=== PATIENT | male | born 2000 | race Caucasian/White ===

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

== ENCOUNTER → 2020-05-17 | Outpatient (CLI) | payer OTHER ==
[2020-05-17 17:19] LABS: BASOPHILS % (AUTO) 0 % (0-10); EOSINOPHILS # (AUTO) 0.6 10^3/uL (0.0-0.3); EOSINOPHILS % (AUTO) 12 % (0-10); HEMATOCRIT 43 % (40-54); HEMOGLOBIN 15.3 G/DL (13.3-17.7); LYMPHOCYTES % (AUTO) 39 % (12-44); MEAN CORPUSCULAR HEMOGLOBIN 31 PG (25-34); MEAN CORPUSCULAR HGB CONC 36 G/DL (32-36); MEAN CORPUSCULAR VOLUME 87 FL (80-99); MEAN PLATELET VOLUME 9.6 FL (7.4-10.4); MONOCYTES # (AUTO) 0.4 X 10^3 (0.0-1.0); MONOCYTES % (AUTO) 9 % (0-12); NEUTROPHILS # (AUTO) 2.1 X 10^3 (1.8-7.8); NEUTROPHILS % (AUTO) 41 % (42-75); PLATELET COUNT 272 10^3/uL (130-400); RED CELL DISTRIBUTION WIDTH 12.5 % (10.0-14.5); WHITE BLOOD COUNT 5.1 10^3/uL (4.3-11.0)
[2020-05-17 17:31] LABS: ALBUMIN 4.3 GM/DL (3.2-4.5)
[2020-05-17 17:32] LABS: CHLORIDE 106 MMOL/L (98-107); POTASSIUM 3.9 MMOL/L (3.6-5.0); SODIUM 139 MMOL/L (135-145)
[2020-05-17 17:33] LABS: CALCIUM 9.1 MG/DL (8.5-10.1)
[2020-05-17 17:34] LABS: GLUCOSE 123 MG/DL (70-105); TOTAL PROTEIN 6.9 GM/DL (6.4-8.2)
[2020-05-17 17:35] LABS: CARBON DIOXIDE 25 MMOL/L (21-32)
[2020-05-17 17:36] LABS: BILIRUBIN,TOTAL 1.7 MG/DL (0.1-1.0)
[2020-05-17 17:37] LABS: ALKALINE PHOSPHATASE 63 U/L (40-136)
[2020-05-17 17:38] LABS: GFR ESTIMATED > 60
[2020-05-17 17:39] LABS: BUN/CREATININE RATIO 11
[2020-05-17 17:41] LABS: ALANINE AMINOTRANSFERASE 12 U/L (0-55)
[2020-05-17 17:48] LABS: CREATINE KINASE MB 0.6 NG/ML (<6.6)
== END ==
LOC: LAB 17:05
PROVIDERS: ATTEND Nurse Practitioner Family
DX: R55 Syncope and collapse (principal); R00.2 Palpitations; E86.0 Dehydration
CPT/HCPCS: 36415; 80053; 82553; 83874; 84443; 84484; 85025

== ENCOUNTER → 2020-05-23 | Outpatient (CLI) | payer OTHER | LOC: CARD 12:18 | PROVIDERS: ATTEND Nurse Practitioner Family | DX: R55 Syncope and collapse (principal); R00.2 Palpitations; E86.0 Dehydration | CPT/HCPCS: 93225; 93226; 93306 ==

== ENCOUNTER 2021-02-27 09:55 | Emergency (ER) | payer OTHER ==
[~2021-02-27] VITALS: Ht 190 cm; Wt 82.0 kg
[2021-02-27] MEDS ORDERED: KETOROLAC 30 MG/ML VIAL ONE (10:30)
[2021-02-27] MEDS ORDERED: NS IV 1000 ML 1,000 ML ONE (10:30)
[2021-02-27 10:41] LABS: BASOPHILS % (AUTO) 0 % (0-10); EOSINOPHILS # (AUTO) 0.2 10^3/uL (0.0-0.3); EOSINOPHILS % (AUTO) 1 % (0-10); HEMATOCRIT 45 % (40-54); HEMOGLOBIN 15.4 g/dL (13.3-17.7); LYMPHOCYTES # (AUTO) 1.1 10^3/uL (1.0-4.0); LYMPHOCYTES % (AUTO) 8 % (12-44); MEAN CORPUSCULAR HEMOGLOBIN 31 pg (25-34); MEAN CORPUSCULAR HGB CONC 35 g/dL (32-36); MEAN CORPUSCULAR VOLUME 89 fL (80-99); MEAN PLATELET VOLUME 9.8 fL (9.0-12.2); MONOCYTES # (AUTO) 0.7 10^3/uL (0.0-1.0); MONOCYTES % (AUTO) 6 % (0-12); NEUTROPHILS # (AUTO) 10.5 10^3/uL (1.8-7.8); NEUTROPHILS % (AUTO) 84 % (42-75); PLATELET COUNT 261 10^3/uL (130-400); WHITE BLOOD COUNT 12.4 10^3/uL (4.3-11.0)
[2021-02-27 10:42] LABS: BILIRUBIN,URINE NEGATIVE (NEGATIVE); CLARITY,URINE CLEAR; COLOR,URINE YELLOW; GLUCOSE, URINE (UA) NEGATIVE (NEGATIVE); KETONES,URINE 1+ (NEGATIVE); LEUKOCYTE ESTERASE ,URINE NEGATIVE (NEGATIVE); NITRITE,URINE NEGATIVE (NEGATIVE); PROTEIN,URINE NEGATIVE (NEGATIVE)
[2021-02-27 10:55] LABS: ALBUMIN 4.5 GM/DL (3.2-4.5)
[2021-02-27 10:56] LABS: CHLORIDE 104 MMOL/L (98-107); POTASSIUM 4.1 MMOL/L (3.6-5.0); SODIUM 138 MMOL/L (135-145)
[2021-02-27 10:57] LABS: CALCIUM 9.3 MG/DL (8.5-10.1)
[2021-02-27 10:58] LABS: GLUCOSE 108 MG/DL (70-105); TOTAL PROTEIN 7.2 GM/DL (6.4-8.2)
[2021-02-27 10:59] LABS: CARBON DIOXIDE 25 MMOL/L (21-32)
[2021-02-27 11:00] LABS: BILIRUBIN,TOTAL 2.6 MG/DL (0.1-1.0)
[2021-02-27 11:01] LABS: ALKALINE PHOSPHATASE 50 U/L (40-136)
[2021-02-27 11:02] LABS: CREATININE SERUM 1.03 MG/DL (0.60-1.30); GFR ESTIMATED > 60
[2021-02-27 11:03] LABS: BUN/CREATININE RATIO 14
[2021-02-27 11:04] LABS: BACTERIA,URINE TRACE /HPF; HYALINE CASTS, URINE RARE /LPF; RBC,URINE 25-50 /HPF; SQUAMOUS EPITHELIAL CELL,UR 0-2 /HPF; WBC,URINE 0-2 /HPF
[2021-02-27 11:05] LABS: ALANINE AMINOTRANSFERASE 11 U/L (0-55)
--- NOTE | 2021-02-27 11:22 | Diagnostic Imaging Report ---
PROCEDURE: CT urinary tract, rule out kidney stone. TECHNIQUE: Multiple contiguous axial images were obtained through the abdomen and pelvis without the use of intravenous contrast. Auto Exposure Controls were utilized during the CT exam to meet ALARA standards for radiation dose reduction. INDICATION: Right-sided flank pain. Hematuria. Evaluate for renal stones. COMPARISON: None. FINDINGS: The heart is unremarkable. The lung bases are clear. A 0.2 cm calculus is seen in the distal right ureter just proximal to the right UVJ with mild right-sided hydroureteronephrosis. No renal calculi or hydronephrosis is seen on the left. No bladder calculi are present. The bladder wall is mildly thickened. The liver, spleen, pancreas, and adrenal glands have a normal appearance. There is no pathologically enlarged mesenteric or retroperitoneal adenopathy. The bowel loops are nondilated. The appendix is visualized in the right lower quadrant and has a normal appearance. There is no free fluid or free air. No acute osseous abnormalities. There is no free air, loculated collection, or adenopathy in the pelvis. IMPRESSION: 1. Calculus in the distal right ureter measuring 0.2 cm just proximal to the right UVJ with mild right-sided hydroureteronephrosis. Dictated by: Dictated on workstation # [id number]
--- NOTE | 2021-02-27 12:47 | ED Back Pain ---
General Stated Complaint: KIDNEY PAIN Source of Information: Patient Exam Limitations: No Limitations History of Present Illness Date Seen by Provider: Feb 27, 2021 Time Seen by Provider: 10:30 Initial Comments Patient presents ER by private conveyance with significant other chief complaint of right flank pain. He has been having some dysuria so he went to urgent care had a urinalysis done was started on ciprofloxacin. He is continued having right flank pain. He rates it as about a 7 out of 10 moderate and has not having any nausea or vomiting. No history of kidney stones. No fevers chills Allergies and Home Medications Allergies Coded Allergies: No Known Drug Allergies (Unverified , 02/27/21) Home Medications Hydrocodone/Acetaminophen 1 Each Tablet, 1 TAB PO Q6H PRN for PAIN-MODERATE (5- 7) Prescribed by: JEANIE BUTLER on 02/27/21 1254 Ondansetron 4 Mg Tab.rapdis, 4 MG PO Q6H PRN for NAUSEA/VOMITING Prescribed by: JEANIE BUTLER on 02/27/21 1253 Tamsulosin HCl 0.4 Mg Cap, 0.4 MG PO DAILY Prescribed by: JEANIE BUTLER on 02/27/21 1253 Patient Home Medication List Home Medication List Reviewed: Yes Review of Systems Constitutional: No chills, No diaphoresis EENTM: No ear discharge, No ear pain Respiratory: No cough, No phlegm Cardiovascular: No chest pain, No palpitations Gastrointestinal: No abdominal pain, No constipation, No diarrhea Genitourinary: No discharge, No dysuria Musculoskeletal: No back pain, No joint pain All Other Systems Reviewed Negative Unless Noted: Yes Past Btjpvsa-Wuufpq-Tvxabk Hx Patient Social History Alcohol Use: Denies Use Smoking Status: Current Everyday Smoker Type Used: Cigarettes (Half pack per) Physical Exam Vital Signs Vital Signs - First Documented 02/27/21 10:24 Temp 36.9 Pulse 85 Resp 20 B/P (MAP) 131/85 (100) Pulse Ox 99 Capillary Refill : Height, Weight, BMI Height: '" Weight: lbs. oz. kg; BMI Method: General Appearance: No Apparent Distress, WD/WN HEENT: PERRL/EOMI, Pharynx Normal, Moist Mucous Membranes Neck: Full Range of Motion, Normal Inspection Cardiovascular: Regular Rate, Rhythm, Normal Peripheral Pulses Respiratory: Lungs Clear, Normal Breath Sounds, No Accessory Muscle Use, No Respiratory Distress Gastrointestinal: Normal Bowel Sounds, Non Tender, Soft Back: Normal Inspection, No Vertebral Tenderness; No CVA Tenderness (L); CVA Tenderness (R) Extremity: Normal Capillary Refill, Normal Inspection Neurologic/Psychiatric: Alert, Oriented x3 Progress/Results/Core Measures Results/Orders Lab Results Laboratory Tests Test 02/27/21 10:30 02/27/21 10:36 Range/Units White Blood Count 12.4 H 4.3-11.0 10^3/uL Red Blood Count 5.01 4.30-5.52 10^6/uL Hemoglobin 15.4 13.3-17.7 g/dL Hematocrit 45 40-54 % Mean Corpuscular Volume 89 80-99 fL Mean Corpuscular Hemoglobin 31 25-34 pg Mean Corpuscular Hemoglobin Concent 35 32-36 g/dL Red Cell Distribution Width 12.0 10.0-14.5 % Platelet Count 261 130-400 10^3/uL Mean Platelet Volume 9.8 9.0-12.2 fL Immature Granulocyte % (Auto) 0 % Neutrophils (%) (Auto) 84 H 42-75 % Lymphocytes (%) (Auto) 8 L 12-44 % Monocytes (%) (Auto) 6 0-12 % Eosinophils (%) (Auto) 1 0-10 % Basophils (%) (Auto) 0 0-10 % Neutrophils # (Auto) 10.5 H 1.8-7.8 10^3/uL Lymphocytes # (Auto) 1.1 1.0-4.0 10^3/uL Monocytes # (Auto) 0.7 0.0-1.0 10^3/uL Eosinophils # (Auto) 0.2 0.0-0.3 10^3/uL Basophils # (Auto) 0.0 0.0-0.1 10^3/uL Immature Granulocyte # (Auto) 0.0 0.0-0.1 10^3/uL Sodium Level 138 135-145 MMOL/L Potassium Level 4.1 3.6-5.0 MMOL/L Chloride Level 104 98-107 MMOL/L Carbon Dioxide Level 25 21-32 MMOL/L Anion Gap 9 5-14 MMOL/L Blood Urea Nitrogen 14 7-18 MG/DL Creatinine 1.03 0.60-1.30 MG/DL Estimat Glomerular Filtration Rate > 60 BUN/Creatinine Ratio 14 Glucose Level 108 H 70-105 MG/DL Calcium Level 9.3 8.5-10.1 MG/DL Corrected Calcium 8.9 8.5-10.1 MG/DL Total Bilirubin 2.6 H 0.1-1.0 MG/DL Aspartate Amino Transf (AST/SGOT) 19 5-34 U/L Alanine Aminotransferase (ALT/SGPT) 11 0-55 U/L Alkaline Phosphatase 50 40-136 U/L Total Protein 7.2 6.4-8.2 GM/DL Albumin 4.5 3.2-4.5 GM/DL Urine Color YELLOW Urine Clarity CLEAR Urine pH 6.0 5-9 Urine Specific [place] 1.010 L 1.016-1.022 Urine Protein NEGATIVE NEGATIVE Urine Glucose (UA) NEGATIVE NEGATIVE Urine Ketones 1+ H NEGATIVE Urine Nitrite NEGATIVE NEGATIVE Urine Bilirubin NEGATIVE NEGATIVE Urine Urobilinogen 0.2 < = 1.0 MG/DL Urine Leukocyte Esterase NEGATIVE NEGATIVE Urine RBC (Auto) 3+ H NEGATIVE Urine RBC 25-50 H /HPF Urine WBC 0-2 /HPF Urine Squamous Epithelial Cells 0-2 /HPF Urine Crystals NONE /LPF Urine Bacteria TRACE /HPF Urine Casts PRESENT /LPF Urine Hyaline Casts RARE /LPF Urine Mucus MODERATE H /LPF Urine Culture Indicated NO My Orders Orders - JEANIE BUTLER Ua Culture If Indicated (02/27/21 10:31) Ct Abd/Pelvis Wo(Kidney Stone) (02/27/21 10:34) Cbc With Automated Diff (02/27/21 10:34) Comprehensive Metabolic Panel (02/27/21 10:34) Ketorolac Injection (Toradol Injection) (02/27/21 10:30) Ns Iv 1000 Ml (Sodium Chloride 0.9%) (02/27/21 10:30) Medications Given in ED Current Medications Medications Dose Ordered Sig/Jakub Route Start Time Stop Time Status Last Admin Dose Admin Ketorolac Tromethamine 30 mg STK-MED ONCE .ROUTE 02/27/21 10:30 02/27/21 10:36 DC 02/27/21 10:39 30 MG Sodium Chloride 1,000 ml @ ud STK-MED ONCE .ROUTE 02/27/21 10:30 02/27/21 10:36 DC 02/27/21 10:39 1,000 MLS/HR Vital Signs/I&O 02/27/21 02/27/21 10:24 12:56 Temp 36.9 Pulse 85 78 Resp 20 20 B/P (MAP) 131/85 (100) 122/68 (100) Pulse Ox 99 99 Progress Progress Note : Time: 11:00 Progress Note 30 mg Toradol IV helped him. Because he does have a history of kidney stones we gave him some fluids and check some labs and demonstrate he has a kidney stone on CT. We gave him appropriate medications and told him to continue taking his ciprofloxacin. Diagnostic Imaging Diagonstic Imaging: CT Plain Films/CT/US/NM/MRI: abdomen, pelvis Comments NAME: DENIS BAIN [facility] REC#: [id number] PT STATUS: REG ER : 2000 PHYSICIAN: JEANIE BUTLER MD ADMIT DATE: 02/27/21/ER Signed Date of Exam:02/27/21 CT ABD/PELVIS WO(KIDNEY STONE) PROCEDURE: CT urinary tract, rule out kidney stone. TECHNIQUE: Multiple contiguous axial images were obtained through the abdomen and pelvis without the use of intravenous contrast. Auto Exposure Controls were utilized during the CT exam to meet ALARA standards for radiation dose reduction. INDICATION: Right-sided flank pain. Hematuria. Evaluate for renal stones. COMPARISON: None. FINDINGS: The heart is unremarkable. The lung bases are clear. A 0.2 cm calculus is seen in the distal right ureter just proximal to the right UVJ with mild right-sided hydroureteronephrosis. No renal calculi or hydronephrosis is seen on the left. No bladder calculi are present. The bladder wall is mildly thickened. The liver, spleen, pancreas, and adrenal glands have a normal appearance. There is no pathologically enlarged mesenteric or retroperitoneal adenopathy. The bowel loops are nondilated. The appendix is visualized in the right lower quadrant and has a normal appearance. There is no free fluid or free air. No acute osseous abnormalities. There is no free air, loculated collection, or adenopathy in the pelvis. IMPRESSION: 1. Calculus in the distal right ureter measuring 0.2 cm just proximal to the right UVJ with mild right-sided hydroureteronephrosis. Dictated by: Dictated on workstation # [id number] Dict: 02/27/21 1115 Trans: 02/27/21 1126 [id number] [id number] Interpreted by: HANNAH MONTES DE OCA DO Electronically signed by: HANNAH MONTES DE OCA DO 02/27/21 1126 Reviewed: Reviewed by Me Departure Impression Primary Impression: Kidney stone on right side Additional Impression: UTI (urinary tract infection) Qualified Codes: N39.0 - Urinary tract infection, site not specified; R31.9 - Hematuria, unspecified Disposition: 01 HOME, SELF-CARE Condition: Stable Departure-Patient Inst. Decision time for Depature: 12:44 Referrals: NO,LOCAL PHYSICIAN (PCP) Primary Care Physician LAKSHMI PHILLIPS MD Patient Instructions: Kidney Stones (DC) Add. Discharge Instructions: This kidney stone should pass easily on its own. After it passes expect to have a little bit of blood in the urine and pain for 1-2 more days. Ibuprofen 800 mg every 8 hours as necessary for pain. Tylenol 650 mg every 8 hours as necessary for pain. Hydrocodone 1 tablet every 6 hours as necessary for severe breakthrough pain. Drink plenty of fluids. Strain your urine using the supplied strainer to see if you can catch the stone. Continue taking the ciprofloxacin as ordered by the previous physician. Ondansetron/Zofran 1 tablet every 6 hours as necessary for nausea and vomiting. Scripts Tamsulosin HCl (Flomax) 0.4 Mg Cap 0.4 MG PO DAILY for 7 Days, #7 CAP 0 Refills Prov: JEANIE BUTLER 02/27/21 Hydrocodone/Acetaminophen (Hydrocodone-Acetamin 5-325 mg) 1 Each Tablet 1 TAB PO Q6H PRN for PAIN-MODERATE (5-7), #10 TAB 0 Refills Prov: JEANIE BUTLER 02/27/21 Ondansetron (Ondansetron Odt) 4 Mg Tab.rapdis 4 MG PO Q6H PRN for NAUSEA/VOMITING, #8 TAB 0 Refills Prov: JEANIE BUTLER 02/27/21 Work/School Note: Work Release Form Date Seen in the Emergency Department: Feb 27, 2021 Return to Work: Feb 28, 2021 Restrictions: No Restrictions Copy Copies To 1: LAKSHMI PHILLIPS MD, TITUS J Feb 27, 2021 12:47
[2021-02-27] MEDS ORDERED: TMSL.4C PO (12:53)
[2021-02-27] MEDS ORDERED: ACHD5005 PO (12:53)
[2021-02-27] MEDS ORDERED: ONDA4TAB11 PO (12:53)
[2021-02-27 12:56] VITALS: BP 122/68
== END 2021-02-27 13:00 | disposition home or self-care (01) ==
LOC: EDUNIT# 09:55 → ER 09:57
DX: N13.6 Pyonephrosis (principal); F17.210 Nicotine dependence, cigarettes, uncomplicated; Z79.2 Long term (current) use of antibiotics
CPT/HCPCS: 36415; 74176; 80053; 81000; 85025

== ENCOUNTER 2021-03-08 15:55 | Emergency (ER) | payer OTHER ==
[~2021-03-08] VITALS: Ht 190 cm; Wt 81.0 kg
[~2021-03-08 15:55] MED LIST: ACHD5005 PO; ONDA4TAB11 PO; TMSL.4C PO
[2021-03-08] MEDS ORDERED: NS IV 1000 ML 1,000 ML IV SCH (16:15)
[2021-03-08] MEDS ORDERED: ONDANSETRON 4 MG/2 ML (SDV) Z0FRAN IVP ONE (16:15)
[2021-03-08] MEDS ORDERED: fentaNYL INJ 100 MCG/2 ML AMP IVP ONE (16:15)
[2021-03-08] MEDS ORDERED: KETOROLAC 30 MG/ML VIAL IVP ONE (16:15)
[2021-03-08 16:16] LABS: BASOPHILS % (AUTO) 0 % (0-10); EOSINOPHILS # (AUTO) 0.3 10^3/uL (0.0-0.3); EOSINOPHILS % (AUTO) 3 % (0-10); HEMATOCRIT 45 % (40-54); HEMOGLOBIN 15.5 g/dL (13.3-17.7); LYMPHOCYTES # (AUTO) 1.3 10^3/uL (1.0-4.0); LYMPHOCYTES % (AUTO) 10 % (12-44); MEAN CORPUSCULAR HEMOGLOBIN 31 pg (25-34); MEAN CORPUSCULAR HGB CONC 35 g/dL (32-36); MEAN CORPUSCULAR VOLUME 88 fL (80-99); MEAN PLATELET VOLUME 9.7 fL (9.0-12.2); MONOCYTES # (AUTO) 1.2 10^3/uL (0.0-1.0); MONOCYTES % (AUTO) 10 % (0-12); NEUTROPHILS # (AUTO) 9.5 10^3/uL (1.8-7.8); NEUTROPHILS % (AUTO) 77 % (42-75); PLATELET COUNT 275 10^3/uL (130-400); WHITE BLOOD COUNT 12.3 10^3/uL (4.3-11.0)
--- NOTE | 2021-03-08 16:16 | ED GU-Male ---
General Chief Complaint: Abdominal/GI Problems Stated Complaint: KIDNEY STONE Source: patient Exam Limitations: no limitations History of Present Illness Date Seen by Provider: Mar 08, 2021 Time Seen by Provider: 16:05 Initial Comments To ER by private vehicle with reports of right flank pain. He was diagnosed here with a kidney stone about 9 days ago. About 3 days ago he had some significant hematuria and frequent urination. Today he has had some vomiting a nd intolerable pain. No fevers or chills. This is his first stone. Timing/Duration: constant, getting worse Severity/Quality: moderate Location: unknown Radiation: right flank Activities at Onset: none Prior Genitourinary Problems: none Associated Symptoms: dysuria Allergies and Home Medications Allergies Coded Allergies: No Known Drug Allergies (Unverified , 02/27/21) Home Medications Hydrocodone/Acetaminophen 1 Each Tablet, 1 TAB PO Q6H PRN for PAIN-MODERATE (5- 7) Prescribed by: JEANIE BUTLER on 02/27/21 1254 Ketorolac Tromethamine 10 Mg Tablet, 10 MG PO BID PRN for PAIN-SEVERE (8-10) Prescribed by: SYBIL MAYORGA on 03/08/21 164 Ondansetron 4 Mg Tab.rapdis, 4 MG PO Q6H PRN for NAUSEA/VOMITING Prescribed by: JEANIE BUTLER on 02/27/21 1253 Ondansetron 8 Mg Tab.rapdis, 8 MG PO Q6H PRN for PAIN-MODERATE (5-7) Prescribed by: SYBIL MAYORGA on 03/08/21 164 Oxycodone HCl/Acetaminophen 1 Each Tablet, 1 TAB PO Q4H Prescribed by: SYBIL MAYORGA on 03/08/21 1649 Tamsulosin HCl 0.4 Mg Cap, 0.4 MG PO DAILY Prescribed by: JEANIE BUTLER on 02/27/21 1253 Tamsulosin HCl 0.4 Mg Cap, 0.4 MG PO DAILY Prescribed by: SYBIL MAYORGA on 03/08/21 1657 Patient Home Medication List Home Medication List Reviewed: Yes Review of Systems Review of Systems Constitutional: see HPI EENTM: see HPI Respiratory: no symptoms reported Cardiovascular: no symptoms reported Genitourinary: see HPI Musculoskeletal: no symptoms reported Skin: no symptoms reported Psychiatric/Neurological: No Symptoms Reported Endocrine: No Symptoms Reported Past Xtdxcdk-Cscolb-Oyyspx Hx Patient Social History Type Used: Cigarettes Recent Hopitalizations: No Seasonal Allergies Seasonal Allergies: No Past Medical History Tonsillectomy Respiratory: Yes Asthma Cardiac: No Neurological: No Genitourinary: No Gastrointestinal: No Musculoskeletal: No Endocrine: No HEENT: No Cancer: No Psychosocial: No Integumentary: No Blood Disorders: No Physical Exam Vital Signs Vital Signs - First Documented 03/08/21 16:00 Temp 36.3 Pulse 62 Resp 16 B/P (MAP) 138/100 (113) Pulse Ox 99 O2 Delivery Room Air Capillary Refill : Height, Weight, BMI Height: '" Weight: lbs. oz. kg; 22.00 BMI Method: General Appearance: WD/WN, no apparent distress, thin, other (Appears uncomfortable) Neck: non-tender, full range of motion Respiratory: no respiratory distress, no accessory muscle use Gastrointestinal: normal bowel sounds, non tender, soft Extremities: normal range of motion, non-tender Neurologic/Psychiatric: alert, normal mood/affect, oriented x 3 Skin: normal color, warm/dry Progress/Results/Core Measures Suspected Sepsis SIRS Temperature: Pulse: Respiratory Rate: Laboratory Tests 03/08/21 16:09: White Blood Count 12.3H Blood Pressure / Mean: Laboratory Tests 03/08/21 16:09: Creatinine 1.10, Platelet Count 275 Results/Orders Lab Results Laboratory Tests Test 03/08/21 16:09 Range/Units White Blood Count 12.3 H 4.3-11.0 10^3/uL Red Blood Count 5.05 4.30-5.52 10^6/uL Hemoglobin 15.5 13.3-17.7 g/dL Hematocrit 45 40-54 % Mean Corpuscular Volume 88 80-99 fL Mean Corpuscular Hemoglobin 31 25-34 pg Mean Corpuscular Hemoglobin Concent 35 32-36 g/dL Red Cell Distribution Width 11.9 10.0-14.5 % Platelet Count 275 130-400 10^3/uL Mean Platelet Volume 9.7 9.0-12.2 fL Immature Granulocyte % (Auto) 0 % Neutrophils (%) (Auto) 77 H 42-75 % Lymphocytes (%) (Auto) 10 L 12-44 % Monocytes (%) (Auto) 10 0-12 % Eosinophils (%) (Auto) 3 0-10 % Basophils (%) (Auto) 0 0-10 % Neutrophils # (Auto) 9.5 H 1.8-7.8 10^3/uL Lymphocytes # (Auto) 1.3 1.0-4.0 10^3/uL Monocytes # (Auto) 1.2 H 0.0-1.0 10^3/uL Eosinophils # (Auto) 0.3 0.0-0.3 10^3/uL Basophils # (Auto) 0.0 0.0-0.1 10^3/uL Immature Granulocyte # (Auto) 0.0 0.0-0.1 10^3/uL Sodium Level 138 135-145 MMOL/L Potassium Level 4.2 3.6-5.0 MMOL/L Chloride Level 103 98-107 MMOL/L Carbon Dioxide Level 26 21-32 MMOL/L Anion Gap 9 5-14 MMOL/L Blood Urea Nitrogen 12 7-18 MG/DL Creatinine 1.10 0.60-1.30 MG/DL Estimat Glomerular Filtration Rate > 60 BUN/Creatinine Ratio 11 Glucose Level 99 70-105 MG/DL Calcium Level 9.3 8.5-10.1 MG/DL My Orders Orders - SYBIL MAYORGA APRN Ua Culture If Indicated (03/08/21 16:11) Abdomen/Kub 1view (03/08/21 16:11) Cbc With Automated Diff (03/08/21 16:11) Basic Metabolic Panel (03/08/21 16:11) Ed Iv/Invasive Line Start (03/08/21 16:11) Ketorolac Injection (Toradol Injection) (03/08/21 16:15) Fentanyl Inj (Sublimaze Injection) (03/08/21 16:15) Ondansetron Injection (Zofran Injectio (03/08/21 16:15) Ns Iv 1000 Ml (Sodium Chloride 0.9%) (03/08/21 16:15) Tamsulosin Capsule (Flomax Capsule) (03/08/21 16:30) Medications Given in ED Current Medications Medications Dose Ordered Sig/Jakub Route Start Time Stop Time Status Last Admin Dose Admin Fentanyl Citrate 50 mcg ONCE ONCE IVP 03/08/21 16:15 03/08/21 16:16 DC 03/08/21 16:19 50 MCG Ketorolac Tromethamine 15 mg ONCE ONCE IVP 03/08/21 16:15 03/08/21 16:16 DC 03/08/21 16:20 15 MG Ondansetron HCl 8 mg ONCE ONCE IVP 03/08/21 16:15 03/08/21 16:16 DC 03/08/21 16:19 8 MG Vital Signs/I&O 03/08/21 16:00 Temp 36.3 Pulse 62 Resp 16 B/P (MAP) 138/100 (113) Pulse Ox 99 O2 Delivery Room Air Capillary Refill : Departure Communication (Admissions) 1640-Spoke with Dr. Phillips, recommends increasing fluid intake, pain control and he will see the patient on Thursday if the patient is still not passed it. He feels much better now. Impression Primary Impression: Kidney stone on right side Disposition: HOME, SELF-CARE Condition: Stable Departure-Patient Inst. Decision time for Depature: 16:46 Referrals: NO,LOCAL PHYSICIAN (PCP/Family) Primary Care Physician Patient Instructions: Kidney Stones (DC) Add. Discharge Instructions: 1. Drink plenty of fluids, add to this caffeinated fluids like a cup of coffee. Take the stronger pain medication as directed in addition to the nausea medication. Strain all of your urine. If you still have not passed the stone by Thursday then call Dr. Phillips on Thursday for an appointment to be seen on Thursday. I spoke with him today, if you still have not passed it by Thursday he will plan on removing it in the operating room under anesthesia. All discharge instructions reviewed with patient and/or family. Voiced understanding. Scripts Tamsulosin HCl (Flomax) 0.4 Mg Cap 0.4 MG PO DAILY, #10 CAP Prov: SYBIL MAYORGA APRN 03/08/21 Ondansetron (Ondansetron Odt) 8 Mg Tab.rapdis 8 MG PO Q6H PRN for PAIN-MODERATE (5-7), #14 TAB Prov: SYBIL MAYORGA APRN 03/08/21 Ketorolac Tromethamine (Ketorolac Tromethamine) 10 Mg Tablet 10 MG PO BID PRN for PAIN-SEVERE (8-10), #6 TAB Prov: SYBIL MAYORGA APRN 03/08/21 Oxycodone HCl/Acetaminophen (Percocet 5-325 mg Tablet) 1 Each Tablet 1 TAB PO Q4H for PAIN-MODERATE MDD 6 TABS for 7 Days, #20 TAB Prov: SYBIL MAYORGA APRN 03/08/21 Work/School Note: Work Release Form Date Seen in the Emergency Department: Mar 08, 2021 Return to Work: Mar 09, 2021 Copy Copies To 1: LAKSHMI PHILLIPS MD, PETER J APRN Mar 08, 2021 16:16
[2021-03-08] MEDS ORDERED: TAMSULOSIN 0.4 MG (FLOMAX) CAP PO SCH (16:30)
[2021-03-08 16:34] LABS: CHLORIDE 103 MMOL/L (98-107); POTASSIUM 4.2 MMOL/L (3.6-5.0); SODIUM 138 MMOL/L (135-145)
[2021-03-08 16:35] LABS: CALCIUM 9.3 MG/DL (8.5-10.1); GLUCOSE 99 MG/DL (70-105)
[2021-03-08 16:37] LABS: CARBON DIOXIDE 26 MMOL/L (21-32)
[2021-03-08 16:39] LABS: GFR ESTIMATED > 60
[2021-03-08 16:40] LABS: BUN/CREATININE RATIO 11
--- NOTE | 2021-03-08 16:42 | Diagnostic Imaging Report ---
INDICATION: Right flank pain KUB 4:40 PM Bowel gas pattern is normal. There are no pathologic masses or calcifications. IMPRESSION: Unremarkable abdomen Dictated by: Dictated on workstation # [id number]
[2021-03-08] MEDS ORDERED: ONDA8TAB13 PO (16:49)
[2021-03-08] MEDS ORDERED: OXYC1TAB87 PO (16:49)
[2021-03-08] MEDS ORDERED: KETO10TA PO (16:49)
[2021-03-08] MEDS ORDERED: TMSL.4C PO (16:57)
[2021-03-08 17:05] VITALS: BP 121/71
[2021-03-08 17:07] LABS: BILIRUBIN,URINE NEGATIVE (NEGATIVE); CLARITY,URINE CLEAR; COLOR,URINE YELLOW; GLUCOSE, URINE (UA) NEGATIVE (NEGATIVE); KETONES,URINE NEGATIVE (NEGATIVE); LEUKOCYTE ESTERASE ,URINE NEGATIVE (NEGATIVE); NITRITE,URINE NEGATIVE (NEGATIVE); PROTEIN,URINE NEGATIVE (NEGATIVE)
[2021-03-08 17:21] LABS: BACTERIA,URINE NEGATIVE /HPF
== END 2021-03-08 17:05 | disposition home or self-care (01) ==
LOC: EDUNIT# 15:55 → ER 15:57
DX: N20.0 Calculus of kidney (principal)
CPT/HCPCS: 36415; 74018; 80048; 81000; 85025

== ENCOUNTER → 2021-03-14 | Outpatient (CLI) | payer OTHER ==
[~2021-03-14] MED LIST changes: +KETO10TA PO; +ONDA8TAB13 PO; +OXYC1TAB87 PO
--- NOTE | 2021-03-14 14:54 | Diagnostic Imaging Report ---
INDICATION: Nephrolithiasis KUB 2:31 PM Bowel gas pattern is normal. There is a moderate amount of stool in the ascending colon which partially obscures the right kidney There are no calculi seen. IMPRESSION: Unremarkable KUB. Note is made that the right kidney is partially obscured by fecal material in the colon. Dictated by: Dictated on workstation # [id number]
== END ==
LOC: RAD 14:13
PROVIDERS: ATTEND Urology
DX: N20.0 Calculus of kidney (principal)
CPT/HCPCS: 74018

== ENCOUNTER 2023-03-28 07:10 | Emergency (ER) | payer OTHER ==
[~2023-03-28] VITALS: Ht 190 cm; Wt 77.0 kg
[2023-03-28] MEDS ORDERED: RT-ALBUTEROL SULF 2.5 MG/3 ML PRE-MIX VIAL ONE (07:14)
[2023-03-28] MEDS ORDERED: RT-ALBUTEROL SULF 2.5 MG/3 ML PRE-MIX VIAL INH ONE (07:30)
[2023-03-28] MEDS ORDERED: PRD20T PO (08:19)
[2023-03-28] MEDS ORDERED: ONDA4TAB11 SL (08:19)
[2023-03-28] MEDS ORDERED: ALBU2.5V4 INH (08:19)
--- NOTE | 2023-03-28 08:20 | ED Respiratory ---
General Chief Complaint: Respiratory Problems Stated Complaint: SOA Nursing Triage Note: PT STATES HX OF ASTHMA, ATTACK STARTED ABOUT 2100 LAST NIGHT, SOB ON ARRIVAL, 93% ON ROOM AIR Source: patient Exam Limitations: no limitations History of Present Illness Date Seen by Provider: Mar 28, 2023 Time Seen by Provider: 07:14 Initial Comments This 22-year-old young man presents to the emergency room with complaint of asthma exacerbation since last night. He has not been able to sleep well due to difficulty breathing. He has been up every few hours. He does have nebulizer treatments at home but they are . 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 He does not identify any particular trigger but does admit to smoking marijuana. He has not been sick in any other way with unusual cough, congestion, fever, vomiting, diarrhea, etc. He has a headache. He reports nausea earlier. Allergies and Home Medications Allergies Coded Allergies: No Known Drug Allergies (Unverified , 02/27/21) Patient Home Medication List Home Medication List Reviewed: Yes Albuterol Sulfate (Albuterol Sulfate) 2.5 Mg/3 Ml (0.083 %) Vial.neb, 2.5 MG INH Q4H PRN for WHEEZING Prescribed by: LAURA JUSTIN on 03/28/23 0819 Hydrocodone/Acetaminophen (Hydrocodone-Acetamin 5-325 mg) 1 Each Tablet, 1 TAB PO Q6H PRN for PAIN-MODERATE (5-7) Prescribed by: JEANIE BUTLER on 02/27/21 1254 Ketorolac Tromethamine (Ketorolac Tromethamine) 10 Mg Tablet, 10 MG PO BID PRN for PAIN-SEVERE (8-10) Prescribed by: SYBIL MAYORGA on 03/08/21 1649 Ondansetron (Ondansetron Odt) 4 Mg Tab.rapdis, 4 MG PO Q6H PRN for NAUSEA/VOMITING Prescribed by: JEANIE BUTLER on 02/27/21 1253 Ondansetron (Ondansetron Odt) 8 Mg Tab.rapdis, 8 MG PO Q6H PRN for PAIN-MODERATE (5-7) Prescribed by: SYBIL MAYORGA on 03/08/21 1649 Ondansetron (Ondansetron Odt) 4 Mg Tab.rapdis, 4 MG SL Q4H PRN for NAUSEA/VOMITING Prescribed by: LAURA JUSTIN on 03/28/23 0819 Oxycodone HCl/Acetaminophen (Percocet 5-325 mg Tablet) 1 Each Tablet, 1 TAB PO Q4H Prescribed by: SYBIL MAYORGA on 03/08/21 1649 Prednisone (Prednisone) 20 Mg Tab, 40 MG PO DAILY Prescribed by: LAURA JUSTIN on 03/28/23 0819 Tamsulosin HCl (Flomax) 0.4 Mg Cap, 0.4 MG PO DAILY Prescribed by: JEANIE BUTLER on 02/27/21 1253 Tamsulosin HCl (Flomax) 0.4 Mg Cap, 0.4 MG PO DAILY Prescribed by: SYBIL MAYORGA on 03/08/21 1657 Review of Systems Review of Systems Constitutional: no symptoms reported Respiratory: see HPI Cardiovascular: no symptoms reported Gastrointestinal: no symptoms reported Genitourinary: no symptoms reported Musculoskeletal: no symptoms reported Skin: no symptoms reported Psychiatric/Neurological: No Symptoms Reported Hematologic/Lymphatic: No Symptoms Reported Past Lmmkons-Jywjte-Frgahq Hx Patient Social History Tobacco Use?: Yes Substance use?: Yes Substance type: Marijuana Alcohol Use?: Yes Alcohol Frequency: Once in a while Immunizations Up To Date Second COVID19 Vaccination All: YES Seasonal Allergies Seasonal Allergies: No Past Medical History Surgery/Hospitalization HX: ASTHMA Surgeries: Yes Tonsillectomy Respiratory: Yes Asthma Cardiac: No Neurological: No Genitourinary: No Gastrointestinal: No Musculoskeletal: No Endocrine: No HEENT: No Cancer: No Psychosocial: No Integumentary: No Blood Disorders: No Physical Exam Vital Signs - First Documented 03/28/23 03/28/23 07:14 08:25 Temp 36.6 Pulse 103 Resp 22 B/P (MAP) 135/94 (108) Pulse Ox 95 O2 Delivery Room Air Capillary Refill : Less Than 3 Seconds Height: '" Weight: lbs. oz. kg; 21.00 BMI Method: General Appearance: WD/WN, no apparent distress HEENT: PERRL/EOMI, normal ENT inspection, TMs normal, pharynx normal Neck: normal inspection Respiratory: no respiratory distress, no accessory muscle use; No crackles; wheezing (mild) Cardiovascular: regular rate, rhythm, no edema, no murmur Extremities: normal inspection Neurologic/Psychiatric: alert, normal mood/affect, oriented x 3 Skin: normal color, warm/dry Progress/Results/Core Measures Suspected Sepsis SIRS Temperature: Pulse: 103 Respiratory Rate: 22 Blood Pressure 135 /94 Mean: 108 Results/Orders My Orders Orders - LAURA ANNE MD Albuterol Pre-Mix Nebs (Rt) (Proventil (03/28/23 07:30) Svn Small Volume Nebulizer (03/28/23 07:18) Albuterol Pre-Mix Nebs (Rt) (Proventil (03/28/23 07:14) Medications Given in ED Vital Signs/I&O 03/28/23 03/28/23 03/28/23 07:14 07:14 08:25 Temp 36.6 36.6 Pulse 103 87 Resp 22 18 B/P (MAP) 135/94 (108) 112/71 Pulse Ox 95 O2 Delivery Room Air Room Air Capillary Refill : Less Than 3 Seconds Blood Pressure Mean: 108 Progress Note : Progress Note Patient has significant improvement with albuterol and nebulizer treatment. He did not feel he needed any other therapies at this time. Discharge instructions were reviewed and prescriptions were provided. Departure Impression Primary Impression: Acute asthma exacerbation Qualified Codes: J45.901 - Unspecified asthma with (acute) exacerbation Additional Impression: Acute headache Qualified Codes: R51.9 - Headache, unspecified Disposition: 01 HOME, SELF-CARE Condition: Improved Departure-Patient Inst. Decision time for Depature: 08:15 Referrals: NO,LOCAL PHYSICIAN (PCP/Family) Primary Care Physician Patient Instructions: How to Use a Metered Dose Inhaler ED, How to Use a Nebulizer ED, Asthma, Adult ED Add. Discharge Instructions: Use your inhaled medications as prescribed. Fill the Advair previously prescribed and use it for maintenance and prevention. Use albuterol inhaler or nebulizer as a rescue treatment. Fill your prednisone and started this morning. Take prednisone with food or milk to avoid upset stomach. Use it early in the day to avoid sleep disturbance. Avoid any inhaled irritants including dust and smoke from any source including cigarette smoke, marijuana smoke, environmental smoke, and secondhand smoke. Drink plenty of clear liquids to stay well-hydrated. Zofran (ondansetron) has been's prescribed to use if you have a rebound nausea or vomiting. You may use ibuprofen up to 600 mg every 6 hours and/or Tylenol (acetaminophen) up to 1000 mg every 6 hours as needed for headache. Also consider taking a daily allergy medication such as Claritin (loratadine), Zyrtec (cetirizine), etc. Follow-up with your primary care provider soon to go over your asthma treatment plan and repeat examination. Return to the emergency room if you have worsening symptoms despite following these instructions. All discharge instructions reviewed with patient and/or family. Voiced understanding. Scripts Ondansetron (Ondansetron Odt) 4 Mg Tab.rapdis 4 MG SL Q4H PRN for NAUSEA/VOMITING, #10 TAB Prov: LAURA ANNE MD 03/28/23 Prednisone (Prednisone) 20 Mg Tab 40 MG PO DAILY, #6 TAB 0 Refills Prov: LAURA ANNE MD 03/28/23 Albuterol Sulfate (Albuterol Sulfate) 2.5 Mg/3 Ml (0.083 %) Vial.neb 2.5 MG INH Q4H PRN for WHEEZING, #50 EA 1 Refill Prov: LAURA ANNE MD 03/28/23 LAURA ANNE MD Mar 28, 2023 08:20
[2023-03-28 08:25] VITALS: BP 112/71
== END 2023-03-28 08:24 | disposition home or self-care (01) ==
LOC: EDUNIT# 07:10 → ER 07:11
DX: J45.901 Unspecified asthma with (acute) exacerbation (principal); R51.9 Headache, unspecified
CPT/HCPCS: 99281

== ENCOUNTER 2023-09-30 05:28 | Outpatient (CLI) | payer OTHER ==
[~2023-09-30] VITALS: Ht 190.5 cm; Wt 89.8 kg
[~2023-09-30 05:28] MED LIST changes: +ALBU2.5V4 INH; +ONDA4TAB11 SL; +PRD20T PO
== END 2023-09-30 09:03 | disposition home or self-care (01) ==
LOC: PREOP 05:28
PROVIDERS: ATTEND Surgery
DX: Z01.818 Encounter for other preprocedural examination (principal)

== ENCOUNTER 2023-10-06 12:30 | Day surgery (SDC) | payer OTHER ==
[~2023-10-06] VITALS: Ht 190.5 cm; Wt 89.8 kg
[2023-10-06] MEDS ORDERED: LACTATED RINGERS 1,000 ML 1,000 ML IV STA (12:34)
[2023-10-06] MEDS ORDERED: HURRICAINE EXT TUBE (BENZOCAINE) ONE (12:42)
[2023-10-06] MEDS ORDERED: LACTATED RINGERS 1,000 ML 1,000 ML IV ONE (12:42)
[2023-10-06 12:45] VITALS: BP 131/74
[2023-10-06] MEDS ORDERED: HURRICAINE EXT TUBE (BENZOCAINE) XX PRN (12:45)
--- NOTE | 2023-10-06 13:46 | Progress Note-Pre Operative ---
Pre-Operative Progress Note Date H&P Reviewed: Oct 06, 2023 Time H&P Reviewed: 13:45 History & Physical: H&P Reviewed, Patient Examed, No changes noted Pre-Operative Diagnosis: Dysphagia GUICHO NYE DO Oct 06, 2023 13:46
[2023-10-06] MEDS ORDERED: MIDAZOLAM INJ 2 MG/2 ML VIAL ONE (14:34)
--- NOTE | 2023-10-06 14:47 | Progress Note-Post Operative ---
Post-Operative Progess Note Surgeon (s)/Youth Care Specialist (s) Surgeon GUICHO NYE DO Youth Care Specialist: n/a Pre-Operative Diagnosis Dysphagia Post-Operative Diagnosis Distal esophageal stricture Procedure & Operative Findings Date of Procedure 10/06/23 Procedure Performed/Findings EGD with biopsies Anesthesia Type per LACEMAKER Estimated Blood Loss Estimated blood loss (mL): none Specimens/Packing Specimens Removed Antrum x1 and GE x1 GUICHO NYE DO Oct 06, 2023 14:47
[2023-10-06 14:50] VITALS: BP 114/57
[2023-10-06] MEDS ORDERED: SUCR1TAB36 PO (14:51)
[2023-10-06] MEDS ORDERED: PANT40TA2 PO (14:51)
--- NOTE | 2023-10-06 14:51 | Discharge Inst-Simple/Standard ---
Discharge Inst-Standard Discharge Medications New, Converted or Re-Newed RX: Transmitted to Pharmacy Patient Instructions/Follow Up Plan of Care/Instructions/FU: 2 weeks Divya With Carafate, make into a slurry. Do not take the pill as a whole Activity as Tolerated: Yes Discharge Diet: Regular Diet GUICHO NYE DO Oct 06, 2023 14:51
[2023-10-06 14:55] VITALS: BP 119/58
--- NOTE | 2023-10-06 14:55 | Anesthesia-General Post-Op ---
MAC Patient Condition Mental Status/LOC: Same as Preop Cardiovascular: Satisfactory Nausea/Vomiting: Absent Respiratory: Satisfactory Pain: Controlled Complications: Absent Post Op Complications Complications None Follow Up Care/Instructions Patient Instructions None needed. Anesthesiology Discharge Order Discharge Order Patient is doing well, no complaints, stable vital signs, no apparent adverse anesthesia problems. No complications reported per nursing. MARVIN NORRIS CRNA Oct 06, 2023 14:55
[2023-10-06 15:29] VITALS: BP 119/58
--- NOTE | 2023-10-06 23:35 | OPERATIVE REPORT ---
DATE OF SERVICE: 10/06/2023 PREOPERATIVE DIAGNOSIS: Dysphagia. POSTOPERATIVE DIAGNOSIS: Distal esophageal stricture. SURGEON: Guicho Stokes DO ANESTHESIA: Per HEADER BOSS. PROCEDURES: EGD with biopsies. INDICATIONS: The patient is a 23-year-old male with dysphagia symptoms. He understands risks and benefits of procedure and wished to proceed. Consent was signed in chart. DESCRIPTION OF PROCEDURE: The patient was taken to endoscopy suite, placed in left lateral recumbent position. Timeout was performed. Scope was inserted in the mouth, down the esophagus, which scope was able to be passed through the distal esophagus, but there was some narrowing. The scope was continuously inserted through the stomach and into the duodenum without difficulty. There were no polyps, masses or ulcerations within the duodenum. Scope was slowly retracted back into stomach where it was further insufflated. Biopsy of the antrum was obtained. No polyps, masses or ulcerations. Scope was retroflexed noting a small amount of bleeding at the GE junction, visualized from within the stomach. There does appear to be some narrowing around this area. Scope was then slowly retracted back into the distal esophagus. Again, noting the narrowing and to the area that was dilated with scope was small amount of bleeding. Biopsy of GE junction was obtained. Scope was then slowly retracted back until completely removed, noting no other pathology. The patient tolerated the procedure well without any complications, taken to recovery room in stable condition. RECOMMENDATIONS: The patient will be started on Protonix 40 mg daily and Carafate 1 gram 4 times a day. Would make the Carafate into a [ ]. We will have him follow up in 2 weeks to discuss pathology results to see how symptoms are doing. Would recommend proceeding for repeating EGD with dilatation. Did not do dilatation today due to the bleeding and which would make it was a higher risk if we did further balloon dilatation. Job ID: [id number] DocumentID: [id number] Dictated Date: 10/06/2023 14:54:18 Broommaker Date: 10/06/2023 23:34:00 Dictated By: GUICHO STOKES DO
== END 2023-10-06 15:29 | disposition home or self-care (01) ==
LOC: ENDO 12:30
PROVIDERS: ATTEND Surgery
DX: K22.2 Esophageal obstruction (principal); K20.80 Other esophagitis without bleeding; K31.89 Other diseases of stomach and duodenum; Z87.891 Personal history of nicotine dependence
CPT/HCPCS: 88305